=== PATIENT | male | born 1990 | race Two or more races ===

== ENCOUNTER 2025-05-06 05:51 | Inpatient (IN) | payer OTHER ==
[~2025-05-06] VITALS: Ht 180.3 cm; Wt 97.5 kg
[2025-05-06 06:38] LABS: PLATELET COUNT (AUTO) 115 K/uL (150-450); RED BLOOD CELL COUNT(AUTO) 4.46 MIL/uL (4.5-6.0); RED CELL DISTRIBUTION WIDTH 14.2 % (11.5-15.0); WHITE BLOOD COUNT (AUTO) 5.5 K/uL (4.3-11.0)
[2025-05-06 06:46] LABS: APPEARANCE,URINE CLEAR (CLEAR); BLOOD, URINE TRACE-INTA Ery/uL (NEGATIVE); LEUKOCYTE ESTERASE ,URINE NEGATIVE (NEGATIVE); NITRITE, URINE NEGATIVE (NEGATIVE); UGLUCOSE NEGATIVE (NEGATIVE)
[2025-05-06 06:47] LABS: CALCIUM, SERUM 8.9 mg/dL (8.5-10.1); CREATININE 0.8 mg/dL (0.6-1.3); SODIUM SERUM 137.0 mmol/L (136-145); UREA NITROGEN, BLOOD 9.0 mg/dL (7-18)
[2025-05-06 07:09] LABS: ADD URINE CULTURE NO; SQUAMOUS EPITHELIAL CELL,UR Few /HPF (None Seen)
[2025-05-06] MEDS ORDERED: IV NS 0.9% 250 ML IV ONE (07:38)
[2025-05-06] MEDS ORDERED: IOHEXOL-300 100 ML VIAL IV ONE (07:38)
[2025-05-06] MEDS ORDERED: CT SWABBABLE VALVE TRANS SET 1 EA INFUS.SET MC ONE (07:38)
[2025-05-06] MEDS ORDERED: LIDOCAINE 2% JEL UROJET 10 ML MM ONE (07:42)
[2025-05-06] MEDS: LIDOCAINE 2% JEL 5 ML TUBE MC ONE (07:44)
[2025-05-06] MEDS: PIPERACILLIN /TAZOBACTAM 3.375 G in IV D5W 50 ML IV ONE (08:48)
[2025-05-06 12:00] VITALS: BP 110/73; TEMP 98.4; O2SAT 99
[2025-05-06 16:00] VITALS: BP 98/62; TEMP 98.8; O2SAT 96
[2025-05-06] MEDS: PIPERACILLIN /TAZOBACTAM 3.375 G in IV D5W 50 ML IV SCH (18:17)
[2025-05-06] MEDS: ACETAMINOPHEN 325 MG TABLET PO PRN (18:17)
[2025-05-06] MEDS: ENOXAPARIN SODIUM 40 MG/0.4 ML DISP.SYRIN SQ SCH (18:22)
[2025-05-06] MEDS: IV NS 0.9% 1,000 ML IV PRN (18:25)
[2025-05-06] MEDS ORDERED: ACETAMINOPHEN 325 MG TABLET PO PRN (18:30)
[2025-05-06 20:00] VITALS: BP 102/64; TEMP 97.5; O2SAT 100
[2025-05-07 07:35] LABS: PLATELET COUNT (AUTO) 107 K/uL (150-450); RED BLOOD CELL COUNT(AUTO) 4.34 MIL/uL (4.5-6.0); RED CELL DISTRIBUTION WIDTH 14.0 % (11.5-15.0); WHITE BLOOD COUNT (AUTO) 3.0 K/uL (4.3-11.0)
[2025-05-07 07:59] LABS: CALCIUM, SERUM 8.6 mg/dL (8.5-10.1); CREATININE 0.7 mg/dL (0.6-1.3); PHOSPHORUS 3.8 mg/dL (2.5-4.9); SODIUM SERUM 143.0 mmol/L (136-145); UREA NITROGEN, BLOOD 10.0 mg/dL (7-18)
[2025-05-07] MEDS: DOCUSATE SODIUM 100 MG CAPSULE PO SCH (08:14)
[2025-05-07 08:18] VITALS: BP 110/67; TEMP 98.4; O2SAT 100
[2025-05-07] MEDS ORDERED: FENTANYL PF 100MCG/2ML AMPUL ONE (13:10)
[2025-05-07] MEDS ORDERED: MIDAZOLAM HCL 2 MG/2ML VIAL ONE (13:11)
[2025-05-07] MEDS ORDERED: ROCURONIUM BROMIDE 50 MG/5 ML ONE (13:12)
[2025-05-07] MEDS ORDERED: SUCCINYLCHOLINE CHLORIDE 20 MG/ML VIAL ONE (13:12)
[2025-05-07] MEDS ORDERED: MORPHINE SULFATE INJ 10 MG/ML DISP.SYRIN IV PRN (13:30)
[2025-05-07] MEDS ORDERED: MEPERIDINE HCL/PF 50 MG/ML DISP.SYRIN IV PRN (13:30)
[2025-05-07] MEDS ORDERED: ONDANSETRON HCL/PF 4 MG/2 ML VIAL IVP PRN (13:30)
[2025-05-07] MEDS ORDERED: METOCLOPRAMIDE HCL 10 MG/2 ML VIAL IV PRN (13:30)
[2025-05-07] MEDS ORDERED: BUPIVACAINE 0.25% 75 MG/30 ML VIAL ONE (13:55)
[2025-05-07] MEDS ORDERED: ANESTHESIA TRAY IN PYXIS 1 EA TRAY MC ONE (15:01)
[2025-05-07] MEDS: ONDANSETRON HCL/PF 4 MG/2 ML VIAL IVP PRN (15:43)
[2025-05-07 16:06] VITALS: BP 102/67; TEMP 98; O2SAT 99
[2025-05-07 17:39] LABS: HIV-1/2 ANTIBODY REACTIVE (NONREACTIVE)
[2025-05-07 20:00] VITALS: BP 104/62; TEMP 97.5; O2SAT 99
[2025-05-08 08:00] VITALS: BP 94/60; TEMP 99.1; O2SAT 99
[2025-05-08] MEDS: HYDROCODONE/APAP 5/325MG TABLET PO PRN (11:20)
[2025-05-08 16:00] VITALS: BP 108/67; TEMP 99; O2SAT 98
[2025-05-08 20:00] VITALS: BP 115/72; TEMP 97.9; O2SAT 100
[2025-05-09 06:59] LABS: PLATELET COUNT (AUTO) 101 K/uL (150-450); RED BLOOD CELL COUNT(AUTO) 3.79 MIL/uL (4.5-6.0); RED CELL DISTRIBUTION WIDTH 14.1 % (11.5-15.0); WHITE BLOOD COUNT (AUTO) 2.1 K/uL (4.3-11.0)
[2025-05-09 07:30] VITALS: BP 110/67; TEMP 98.1; O2SAT 100
[2025-05-09 07:35] LABS: CALCIUM, SERUM 7.9 mg/dL (8.5-10.1); CREATININE 0.6 mg/dL (0.6-1.3); PHOSPHORUS 2.9 mg/dL (2.5-4.9); SODIUM SERUM 142.0 mmol/L (136-145); UREA NITROGEN, BLOOD 5.0 mg/dL (7-18)
[2025-05-09 09:26] LABS: LYMPHOCYTES % (MANUAL) 42 % (16-48); NEUTROPHILS % (MANUAL) 40 (42-76)
[2025-05-09 09:27] LABS: EOSINOPHILS % (MANUAL) 1 % (0-4); MONOCYTES % (MANUAL) 17 % (0-11.0); PLATELET ESTIMATE DECREASED
[2025-05-09] MEDS: DAKINS QUARTER STRENGTH (0.125%) 480 ML BOTTLE TOP SCH (10:03)
[2025-05-09] MEDS ORDERED: CIPR500T5 PO (10:44)
[2025-05-09] MEDS ORDERED: METR500T PO (10:44)
[2025-05-09] MEDS ORDERED: AMOX-430 PO (10:45)
[2025-05-09] MEDS: PIPERACILLIN /TAZOBACTAM 3.375 G in IV D5W 100 ML IV SCH (14:53)
== END 2025-05-09 19:13 | disposition home health service (06) | DRG 226 ==
LOC: ER 06:07 → MED 11:37
PROVIDERS: ADMIT Nurse Practitioner Acute Care
PROC: 0D9P0ZZ Drainage of Rectum, Open Approach (ICD-10-PCS; principal; 2025-05-07 13:00)
DX: K61.1 Rectal abscess (principal); D61.818 Other pancytopenia; E87.6 Hypokalemia; K62.89 Other specified diseases of anus and rectum; K59.00 Constipation, unspecified; N13.9 Obstructive and reflux uropathy, unspecified; R33.8 Other retention of urine; R16.1 Splenomegaly, not elsewhere classified; R59.1 Generalized enlarged lymph nodes
CPT/HCPCS: 36415; 80048-TC; 81001; 83735-TC; 84100-TC; 85025-TC; 85027-TC; 86360; 87081-TC; 87536; 87806; A4217; A4223; A6253; A6403; A6407; G0378; J0330; J1100; J1650; J1885; J2250; J2405; J2543; J2704; J2765; J3010; J3490; J7030; J7050; J7060; Q9967